=== PATIENT | male | born 2005 | race African-American/Black ===

== ENCOUNTER 2025-03-08 21:05 | Emergency (ER) | payer OTHER ==
[~2025-03-08] VITALS: Ht 193 cm; Wt 87.0 kg
[2025-03-08 21:11] VITALS: O2SAT 97
[2025-03-08 21:13] VITALS: BP 134/80; PULSE 79; RESP 18; TEMP 36.6; O2SAT 99
[2025-03-08] MEDS ORDERED: BO1 TP (21:50)
[2025-03-08] MEDS: BACITRACIN ZINC OINT UDPKT TOP ONE (22:16)
[2025-03-08] MEDS: TETANUS, DIPHTHERIA, PERTUSSIS VAC/PF 0.5ML (>10YR OLD) IM ONE (22:16)
== END 2025-03-08 22:47 | disposition home or self-care (01) ==
LOC: ER 22:29
DX: S60.222A Contusion of left hand, initial encounter (principal); S60.512A Abrasion of left hand, initial encounter; Z23 Encounter for immunization; V49.40XA Driver injured in collision with unspecified motor vehicles in traffic accident, initial encounter; Y93.89 Activity, other specified; Y92.89 Other specified places as the place of occurrence of the external cause; Y99.8 Other external cause status
CPT/HCPCS: 73130; 90471; 90715; 99283